=== PATIENT | male | born 1965 | race Caucasian/White ===

== ENCOUNTER 2020-10-08 18:40 | Emergency (ER) | payer OTHER, SELFPAY ==
[2020-10-08 18:52] VITALS: BP 135/70; PULSE 92; RESP 16; O2SAT 94; BMI 30.7
== END 2020-10-08 22:44 | disposition left against medical advice (07) ==
LOC: HO.ED 22:42
PROVIDERS: Emergency Provider Emergency Medicine
DX: M79.602 Pain in left arm (principal); R20.0 Anesthesia of skin
CPT/HCPCS: 99281; 99282